=== PATIENT | male | born 1970 | race African-American/Black ===

== ENCOUNTER 2018-06-29 05:39 | Emergency (ER) | payer BC ==
[2018-06-29 06:01] VITALS: BMI 24.3
[2018-06-29 06:05] VITALS: RESP 18
--- NOTE | 2018-06-29 07:04 | ED PDOC ---
HPI: Skin/Bite Injury Time Seen by Provider: 06/29/18 06:20 Chief Complaint (Nursing): Abnormal Skin Integrity Chief Complaint (Provider): Abnormal Skin Integrity History Per: Patient History/Exam Limitations: no limitations Onset/Duration Of Symptoms: Other (2.5 weeks) Additional Complaint(s): 48 years old male presents to ER for evaluation of rash spreading all over his body onset 2.5 weeks associated with itchiness. Patient reports he changes the detergent he usually uses which he suspects is the cause of the rash. He denies any shortness of breath. PMD: non provided Past Medical History Reviewed: Historical Data, Nursing Documentation, Vital Signs Vital Signs: Last Vital Signs Temp 98.6 F 06/29/18 06:01 Pulse 98 H 06/29/18 06:01 Resp 18 06/29/18 06:01 BP 178/85 H 06/29/18 06:01 Pulse Ox 100 06/29/18 06:01 - Medical History PMH: No Chronic Diseases - Surgical History Surgical History: No Surg Hx - Family History Family History: States: Unknown Family Hx - Social History Current smoker - smoking cessation education provided: Yes Alcohol: Social Drugs: Denies - Allergies Allergies/Adverse Reactions: Allergies Allergy/AdvReac Type Severity Reaction Status Date / Time peanut Allergy ANGIOEDEMA Verified 06/29/18 06:09 Review of Systems ROS Statement: Except As Marked, All Systems Reviewed And Found Negative Respiratory: Negative for: Shortness of Breath, SOB with Exertion, Pleuritic Pain, Sputum Skin: Positive for: Rash (on head, chest, arms and legs) Physical Exam - Reviewed Nursing Documentation Reviewed: Yes Vital Signs Reviewed: Yes - Physical Exam Appears: Positive for: Non-toxic, No Acute Distress Head Exam: Positive for: ATRAUMATIC, NORMOCEPHALIC Skin: Positive for: Rash (diffuse dry scaly skin rash appears consistent with eczema. its on scalp, arms, legs, face. no surrounding cellulitis) Cardiovascular/Chest: Positive for: Regular Rate, Rhythm. Negative for: Murmur Respiratory: Positive for: Normal Breath Sounds. Negative for: Wheezing Gastrointestinal/Abdominal: Positive for: Normal Exam, Soft. Negative for: Tenderness Neurologic/Psych: Positive for: Alert, Oriented (x3) - ECG O2 Sat by Pulse Oximetry: 100 (RA) Pulse Ox Interpretation: Normal Medical Decision Making Medical Decision Making: Time: 654 Initial Plan: Rash, allergic vs eczema --Benadryl 25 mg PO --Prednisone 40 mg PO pt reevaluated. noted to have high bp, given clonidine instructed pt to follow up with clinic (he has no dr) for blood pressure control and for reevaluation of rash/referral to dermatology for further evaluation pt awake, alert, ambulating with steady gait in no distress Scribe Attestation: Documented by Shilpi Bennett, acting as a scribe for Frank Dai MD. Provider Scribe Attestation: All medical record entries made by the Scribe were at my direction and personally dictated by me. I have reviewed the chart and agree that the record accurately reflects my personal performance of the history, physical exam, medical decision making, and the department course for this patient. I have also personally directed, reviewed, and agree with the discharge instructions and disposition. Disposition - Clinical Impression Clinical Impression: Rash - Patient ED Disposition Is Patient to be Admitted: No Counseled Patient/Family Regarding: Studies Performed, Diagnosis, Need For Followup - Disposition Referrals: [facility] [Outside] [facility] [Outside] Disposition: Routine/Home Disposition Time: 07:35 Condition: IMPROVED Additional Instructions: follow up in the clinic for further management/follow up manager keep skin clean and dry cover with hydrocortisone cream 1% return to the ED with any worsening or concerning symptoms Instructions: Skin Rash (DC) Forms: [facility] (Maltese)
[2018-06-29 07:41] VITALS: TEMP 98.4
[2018-06-29 08:34] VITALS: BP 163/96; PULSE 87
[2018-07-02 19:48] VITALS: O2SAT 100
== END 2018-06-29 08:34 | disposition home or self-care (01) ==
LOC: H.ER 05:39
DX: F21 Schizotypal disorder (principal)